=== PATIENT | female | born 1990 | race Caucasian/White ===

== ENCOUNTER 2018-08-31 08:49 | Emergency (ER) | payer OTHER ==
[~2018-08-31] VITALS: Ht 162.6 cm; Wt 79.4 kg
[~2018-08-31 08:49] MED LIST: AMOX1TAB12 PO; IBUPROFEN800 MG PO; PEPCID40 MG PO; ZOFRAN4 MG PO
== END 2018-08-31 15:55 | disposition home or self-care (01) ==
LOC: ER 08:49
DX: N83.291 Other ovarian cyst, right side (principal); R10.2 Pelvic and perineal pain

== ENCOUNTER 2018-12-23 18:59 | Emergency (ER) | payer OTHER ==
[~2018-12-23] VITALS: Ht 162.6 cm; Wt 79.4 kg
== END 2018-12-23 21:57 | disposition home or self-care (01) ==
LOC: ER 18:59
DX: T78.1XXA Other adverse food reactions, not elsewhere classified, initial encounter (principal); R21 Rash and other nonspecific skin eruption

== ENCOUNTER 2019-02-07 09:38 | Emergency (ER) | payer OTHER ==
[~2019-02-07] VITALS: Ht 162.6 cm; Wt 80.7 kg
[2019-02-07] MEDS ORDERED: ATENOLOL25 MG PO (10:01)
== END 2019-02-07 15:57 | disposition home or self-care (01) ==
LOC: ER 09:38
DX: K52.9 Noninfective gastroenteritis and colitis, unspecified (principal)

== ENCOUNTER 2019-06-16 11:20 | Emergency (ER) | payer OTHER ==
[~2019-06-16] VITALS: Ht 162.6 cm; Wt 79.4 kg
[~2019-06-16 11:20] MED LIST changes: +ATENOLOL25 MG PO
[2019-06-16] MEDS ORDERED: ULTRACET PO (18:30)
[2019-06-16] MEDS ORDERED: CELEBREX200MG PO (18:30)
== END 2019-06-16 19:09 | disposition home or self-care (01) ==
LOC: ER 11:20
DX: N93.8 Other specified abnormal uterine and vaginal bleeding (principal)

== ENCOUNTER 2020-03-25 04:46 | Emergency (ER) | payer OTHER ==
[~2020-03-25] VITALS: Ht 152.4 cm; Wt 85.3 kg
[~2020-03-25 04:46] MED LIST changes: +CELEBREX200MG PO; +ULTRACET PO
[2020-03-25] MEDS ORDERED: TUSSIN100 MG/5 M PO (08:23)
[2020-03-25] MEDS ORDERED: ORASEP SPRAY30 ML MM (08:23)
[2020-03-25] MEDS ORDERED: DUI500 PO (08:23)
== END 2020-03-25 08:33 | disposition home or self-care (01) ==
LOC: ER 04:46
DX: J03.80 Acute tonsillitis due to other specified organisms (principal); Z03.818 Encounter for observation for suspected exposure to other biological agents ruled out; R50.9 Fever, unspecified

== ENCOUNTER 2022-04-18 14:03 | Emergency (ER) | payer OTHER ==
[~2022-04-18] VITALS: Ht 165.1 cm; Wt 85.3 kg
[~2022-04-18 14:03] MED LIST changes: +DUI500 PO; +ORASEP SPRAY30 ML MM; +TUSSIN100 MG/5 M PO
[2022-04-18] MEDS ORDERED: ZOLOFT50 MG PO (14:27)
== END 2022-04-18 19:39 | disposition home or self-care (01) ==
LOC: ER 14:03
DX: K59.00 Constipation, unspecified (principal); R10.84 Generalized abdominal pain; R11.0 Nausea

== ENCOUNTER 2022-06-06 07:40 | Outpatient (CLI) | payer OTHER ==
[~2022-06-06 07:40] MED LIST changes: +ZOLOFT50 MG PO
== END 2022-06-06 07:51 | disposition home or self-care (01) ==
LOC: SONOGRAMA 07:40
DX: N93.9 Abnormal uterine and vaginal bleeding, unspecified (principal); N92.6 Irregular menstruation, unspecified

== ENCOUNTER 2022-07-05 18:24 | Emergency (ER) | payer OTHER ==
[~2022-07-05] VITALS: Ht 165.1 cm; Wt 83.5 kg
[2022-07-05] MEDS ORDERED: BUSPIRONE HCL7.5 MG (18:46)
[2022-07-05] MEDS ORDERED: LAMICTAL25 MG (18:46)
[2022-07-05] MEDS ORDERED: AMOX1TAB5 PO (23:43)
== END 2022-07-06 00:19 | disposition home or self-care (01) ==
LOC: ER 18:24
DX: R59.0 Localized enlarged lymph nodes (principal); H92.01 Otalgia, right ear; R51.9 Headache, unspecified

== ENCOUNTER 2023-11-28 06:19 | Emergency (ER) | payer OTHER ==
[~2023-11-28] VITALS: Ht 170.2 cm; Wt 76.2 kg
[~2023-11-28 06:19] MED LIST changes: +AMOX1TAB5 PO; +BUSPIRONE HCL7.5 MG; +LAMICTAL25 MG
[2023-11-28] MEDS ORDERED: RESTORIL30 MG (06:44)
[2023-11-28] MEDS ORDERED: ATIVAN0.5 M1 (06:44)
[2023-11-28 09:16] LABS: HEMATOCRIT 37.6 % (36.0-45.00); HEMOGLOBIN 12.7 g/dL (12.0-15.00); MEAN CELL VOLUME 92.2 fL (80.00-100.00); MEAN CORPUSCULAR HEMOGLOBIN 31.2 pg (27.00-32.0); MEAN CORPUSCULAR HGB CONC 33.8 g/dl (32.0-36.0); PLATELET COUNT 250 K/uL (150-450); RED BLOOD COUNT 4.07 M/uL (4.00-6.00); RED CELL DISTRIBUTION WIDTH 12.7 % (11.5-14.5)
[2023-11-28 10:34] LABS: CREATININE SERUM 0.68 mg/dL (0.55-1.02); GFR 100.92; POTASSIUM 3.99 mEq/L (3.5-5.1)
== END 2023-11-28 14:41 | disposition home or self-care (01) ==
LOC: ER 06:19
PROVIDERS: General Practice
DX: K52.9 Noninfective gastroenteritis and colitis, unspecified (principal)

== ENCOUNTER 2025-03-01 19:22 | Emergency (ER) | payer OTHER ==
[~2025-03-01] VITALS: Ht 162.6 cm; Wt 77.6 kg
[~2025-03-01 19:22] MED LIST changes: +ATIVAN0.5 M1; +RESTORIL30 MG
[2025-03-01 20:09] VITALS: BP 115/69; O2SAT 100
[2025-03-01] MEDS ORDERED: PROTONIX40 MG PO (20:09)
[2025-03-01] MEDS ORDERED: CIPROFLOXACIN IN 5 % DEXTROSE 400 MG/200 ML PIGGYBAG IV ONE ×2 (21:30→21:56)
[2025-03-01] MEDS ORDERED: FAMOtidine 10 MG/ML (4ML VIAL) IV ONE (21:30)
[2025-03-01] MEDS ORDERED: ONDANSETRON HCL 2 MG/ML VIAL IV ONE (21:30)
[2025-03-01] MEDS ORDERED: 0.9 % SODIUM CHLORIDE 1,000 ML IV ONE (21:30)
[2025-03-01] MEDS ORDERED: METRONIDAZOLE/SODIUM CHLORIDE 500 MG/100 ML PIGGYBACK IV ONE ×2 (21:30→21:56)
[2025-03-01] MEDS ORDERED: KETOROLAC TROMETHAMINE 30 MG VIAL IV ONE (21:30)
[2025-03-01 21:51] LABS: HEMATOCRIT 37.1 % (36.0-45.00); HEMOGLOBIN 12.5 g/dL (12.0-15.00); MEAN CELL VOLUME 90.5 fL (80.00-100.00); MEAN CORPUSCULAR HEMOGLOBIN 30.6 pg (27.00-32.0); MEAN CORPUSCULAR HGB CONC 33.8 g/dl (32.0-36.0); PLATELET COUNT 207 K/uL (150-450); RED CELL DISTRIBUTION WIDTH 13.1 % (11.5-14.5)
[2025-03-01] MEDS ORDERED: FAMOTIDINE/PF 20 MG/2 ML VIAL ONE (21:56)
[2025-03-01] MEDS ORDERED: KETOROLAC TROMETHAMINE 30 MG VIAL ONE (21:56)
[2025-03-01 22:13] LABS: PARTIAL THROMBOPLASTIN TIME 27.8 SECONDS (22.0-34.0); PROTHROMBIN TIME 10.9 SECONDS (9.0-11.5)
[2025-03-01 22:19] LABS: ALBUMIN 3.3 gm/dL (3.4-5.0); ALKALINE PHOSPHATASE 50 U/L (50-136); ALT/SGPT 44 U/L (12-78); ANION GAP 15 (10.0-20.0); AST/SGOT 36 U/L (15-37); BILIRUBIN TOTAL 0.55 mg/dL (0.3-1.2); BLOOD UREA NITROGEN 10 mg/dL (7-18); BUN CREA RATIO 13 (7.0-25.0); CARBON DIOXIDE 19 mEq/L (21-32); CHLORIDE 104 mmol/L (98-107); CREATININE SERUM 0.75 mg/dL (0.55-1.02); GFR 89.55; GLOBULINA 4.6 G/DL (2.4-3.5); GLUCOSE FASTING 109 mg/dL (65-100); OSMOLALITY SERUM 268 MOSM/KG (275-295); SODIUM 134 mmol/L (136-145); TOTAL PROTEIN 7.9 gm/dL (6.4-8.2)
[2025-03-01 22:21] LABS: HCG QUANTITATIVE < 1 mUI/mL (1-3)
[2025-03-01 23:25] LABS: PH,URINE 5.5 (5.0-8.0); URINE APPEARANCE Cloudy; URINE BILIRRUBIN Negative (NEGATIVE); URINE BLOOD Negative; URINE COLOR Dark Yellow; URINE GLUCOSE Negative (NEGATIVE); URINE KETONE 15 (NEGATIVE); URINE LEUKOCYTE Trace; URINE NITRATE Negative; URINE PROTEIN 30 (NEGATIVE); URINE UROBILINOGEN 0.2 E.U./dl
[2025-03-01 23:29] LABS: URINE BACTERIA 1599.6 uL (0.0-1933); URINE EPITHELIAL CELLS 11.5 uL (0.0-38.8); URINE RBC 3.8 uL (0.0-20.8); URINE WBC 10.1 uL (0.0-23.2)
[2025-03-01 23:40] LABS: URINE CAST 0.58 uL (0.0-1.40)
[2025-03-02] MEDS ORDERED: LACTOBACILLUS ACIDOPHILUS 1 CAP CAP PO STA (02:20)
[2025-03-02] MEDS ORDERED: ACETAMINOPHEN 500 MG GEL..CAP PO STA (02:20)
[2025-03-02] MEDS ORDERED: HYOSCYAMINE SULFATE 0.125 MG TAB.SUBL SL STA (02:28)
[2025-03-02] MEDS ORDERED: HYOSCYAMINE SULFATE 0.125 MG TAB.SUBL ONE (02:31)
[2025-03-02] MEDS ORDERED: ACETAMINOPHEN 500 MG GEL..CAP PO ONE (02:31)
[2025-03-02] MEDS ORDERED: LACTOBACILLUS ACIDOPHILUS 1 CAP CAP PO ONE (02:32)
[2025-03-02] MEDS ORDERED: PROMETHAZINE HCL 50 MG/ML AMPUL IM STA (03:39)
[2025-03-02] MEDS ORDERED: PROMETHAZINE HCL 50 MG/ML AMPUL IM ONE (03:41)
[2025-03-02 04:15] LABS: COVID-19 AG NEGATIVE (NEGATIVE)
[2025-03-02 04:20] LABS: INFLUENZA A AG NEGATIVE (NEGATIVE)
[2025-03-02] MEDS ORDERED: PEPCID40 MG PO (05:16)
[2025-03-02] MEDS ORDERED: PHENERGAN25 MG PO (05:16)
[2025-03-02] MEDS ORDERED: INTESTINEX680 M2 PO (05:16)
[2025-03-02] MEDS ORDERED: CIPRO250 MG/5 M PO (05:16)
== END 2025-03-02 05:24 ==
LOC: ER 19:23
PROVIDERS: General Practice
DX: K52.89 Other specified noninfective gastroenteritis and colitis (principal); R19.7 Diarrhea, unspecified; R11.2 Nausea with vomiting, unspecified; R10.31 Right lower quadrant pain; Z20.822 Contact with and (suspected) exposure to COVID-19
CPT/HCPCS: 36415; 74177; 96365; 96366; 96372; 99284; J0744; J1885; J2250; J2405; J3490; J7030; Q9965